=== PATIENT | female | born 1985 | race African-American/Black ===

== ENCOUNTER 2016-09-10 09:14 | Emergency (ER) | payer OTHER ==
[2016-09-10 09:24] VITALS: TEMP 97.8; BMI 36.8
[2016-09-10] MEDS ORDERED: hydrALAZINE HCL 25 MG TABLET (FP) PO ONE (09:55)
[2016-09-10] MEDS ORDERED: amLODIPine BESYLATE 5 MG TABLET (FP) PO ONE (09:55)
[2016-09-10] MEDS ORDERED: LABETALOL HCL 100 MG TABLET (FP) PO ONE (09:56)
--- NOTE | 2016-09-10 10:01 | PDOC ---
History of Present Illness <Blanca Campuzano - Last Filed: 09/10/16 12:56> - General History Source: Patient - History of Present Illness Associated Symptoms: reports: headaches, malaise. denies: chest pain, fever/ chills, nausea/vomiting, shortness of breath <Zoie Reyes - Last Filed: 09/10/16 13:10> - General Chief Complaint: Pain Stated Complaint: HEADACHE, BODY ACHES, DIZZINESS Time Seen by Provider: 09/10/16 09:37 Past History <Blanca Campuzano - Last Filed: 09/10/16 12:56> - Past Medical History HTN: Yes - Psycho/Social/Smoking Cessation Hx Suicidal Ideation: No Smoking History: Current every day smoker Number of Cigarettes Smoked Daily: 4 Information on smoking cessation initiated: No <Zoie Reyes - Last Filed: 09/10/16 13:10> - Past Medical History Allergies/Adverse Reactions: Allergies Allergy/AdvReac Type Severity Reaction Status Date / Time No Known Allergies Allergy Verified 09/10/16 09:24 Home Medications: Ambulatory Orders Amlodipine Besylate [Norvasc -] 5 mg PO DAILY 09/10/16 Labetalol HCl [Normodyne -] 800 mg PO ASDIR 09/10/16 Review of Systems - Review of Systems Constitutional: No: Chills, Fever HEENTM: No: Blurred Vision Respiratory: No: Cough, Shortness of Breath Cardiac (ROS): No: Chest Pain Neurological: Yes: Headache. No: Dizziness <Zoie Reyes - Last Filed: 09/10/16 13:10> *Physical Exam - Vital Signs Last Vital Signs Temp Pulse Resp BP Pulse Ox 97.8 F 84 18 163/106 99 09/10/16 09:16 09/10/16 12:45 09/10/16 12:45 09/10/16 12:45 09/10/16 12:45 <Blanca Campuzano - Last Filed: 09/10/16 12:56> - Vital Signs Last Vital Signs Temp Pulse Resp BP Pulse Ox 97.8 F 92 H 18 200/110 100 09/10/16 09:16 09/10/16 09:16 09/10/16 09:16 09/10/16 09:16 09/10/16 09:16 - Physical Exam General Appearance: Yes: Appropriately Dressed. No: Apparent Distress HEENT: positive: Normal ENT Inspection, Normal Voice. negative: Scleral Icterus (R), Scleral Icterus (L) Neck: positive: Supple Respiratory/Chest: positive: Lungs Clear, Normal Breath Sounds. negative: Respiratory Distress Cardiovascular: positive: Regular Rate, S1, S2 Gastrointestinal/Abdominal: positive: Soft. negative: Tender Extremity: positive: Normal Inspection Integumentary: positive: Dry, Warm Neurologic: positive: Fully Oriented, Alert, Normal Mood/Affect, Motor Strength 5/5. negative: Facial Droop <Lorrie ReyesJoseMyranda - Last Filed: 09/10/16 13:10> Heart Score/ECG Review - ECG Intrepretation Comment:: 09/10/16 11:27 TWI in inferolateral leads, no old to compare <Zoie Reyes - Last Filed: 09/10/16 13:10> ED Treatment Course - LABORATORY CBC & Chemistry Diagram: 09/10/16 10:30 09/10/16 10:30 - ADDITIONAL ORDERS Additional order review: Laboratory Results 09/10/16 09/10/16 11:33 10:30 Sodium 142 Potassium 3.8 Chloride 105 Carbon Dioxide 26 Anion Gap 11 BUN 13 Creatinine 0.9 Creat Clearance w eGFR > 60 Random Glucose 105 Calcium 9.7 Total Bilirubin 0.5 AST 7 L ALT 20 Alkaline Phosphatase 93 Creatine Kinase 78 Troponin I < 0.02 Total Protein 8.8 H Albumin 4.2 Serum , Qual Negative 09/10/16 10:30 RBC 5.96 H MCV 65.6 L MCHC 31.0 L RDW 18.3 H MPV 9.0 Neutrophils % 83.0 H Lymphocytes % 14.0 Monocytes % 3.0 L - Medications Given in the ED: ED Medications Discontinued Medications Generic Name Dose Route Start Last Admin Trade Name Freq PRN Reason Stop Dose Admin Acetaminophen 650 mg 09/10/16 10:27 09/10/16 10:34 Tylenol - PO 09/10/16 10:28 650 mg ONCE ONE Administration Amlodipine Besylate 5 mg 09/10/16 09:55 09/10/16 10:22 Norvasc - PO 09/10/16 09:56 5 mg ONCE ONE Administration Hydralazine HCl 25 mg 09/10/16 09:55 09/10/16 10:22 Apresoline - PO 09/10/16 09:56 25 mg ONCE ONE Administration Ibuprofen 800 mg 09/10/16 09:55 09/10/16 10:22 Motrin - PO 09/10/16 09:56 800 mg ONCE ONE Administration Labetalol HCl 800 mg 09/10/16 09:56 09/10/16 10:22 Normodyne - PO 09/10/16 09:57 800 mg ONCE ONE Administration Labetalol HCl 20 mg 09/10/16 11:35 09/10/16 11:55 Normodyne Injection - IVPUSH 09/10/16 11:36 20 mg ONCE ONE Administration Metoclopramide HCl 10 mg 09/10/16 11:28 09/10/16 11:55 Reglan Injection - IVPB 09/10/16 11:29 10 mg ONCE ONE Administration <Blanca Campuzano - Last Filed: 09/10/16 12:56> - LABORATORY CBC & Chemistry Diagram: 09/10/16 10:30 09/10/16 10:30 <Zoie Reyes - Last Filed: 09/10/16 13:10> Medical Decision Making - Critical Care Time Total Critical Care Time (minutes): 35 Critical Care Statement: The care of this patient involved high complexity decision making to prevent further life threatening deterioration of the patient 's condition and/or to evalute & treat vital organ system(s) failure or risk of failure. - Medical Decision Making 09/10/16 12:[address] [facility] for ICH. <Blanca Campuzano - Last Filed: 09/10/16 12:56> - Medical Decision Making 09/10/16 09:57 31-year-old female, morbid obesity, hypertension, reports non-compliance with medications, presenting with headache and body aches. Patient reports that she' s had headache "for a long time now" and wants to be evaluated today for the first time. Unable to describe pain and states it is diffuse and intermittent with no exacerbating or alleviating factors. Denies dizziness, nausea, vomiting , slurred speech of foal weakness. Also complaining of malaise w/ generalized body aches x several days. No URI symptoms, fever or chills. See exam HTN BP 200/110 in ED Non-compliant w/ home meds C/o chronic CERNA, no change in baseline and non-focal in ED -pain control -BP management>reassess Malaise/body aches ? viral -labs in setting of significantly elevated BP -pain control 09/10/16 10:29 09/10/16 11:28 Given worsening medical condition and abnormal EKG, will transfer to the main ED at this time for further eval including trop and CTH. Charge nurse, MARITA Quezada and attending Justen aware 09/10/16 13:09 09/10/16 13:10 <Zoie Reyes - Last Filed: 09/10/16 13:10> *DC/Admit/Observation/Transfer <Blanca Campuzano - Last Filed: 09/10/16 12:56> <Zoie Reyes - Last Filed: 09/10/16 13:10> Diagnosis at time of Disposition: Basal ganglia hemorrhage - Referrals Referrals: STAFF,NOT ON [Primary Care Provider] -
[2016-09-10] MEDS ORDERED: ONDANSETRON 4 MG TABLET PO ONE (10:03)
[2016-09-10] MEDS ORDERED: IBUPROFEN 400 MG TABLET (FP) PO ONE (10:04)
[2016-09-10] MEDS ORDERED: hydrALAZINE HCL 25 MG TABLET (FP) ONE (10:07)
[2016-09-10] MEDS ORDERED: amLODIPine BESYLATE 5 MG TABLET (FP) ONE (10:07)
[2016-09-10] MEDS ORDERED: LABETALOL HCL 100 MG TABLET (FP) ONE (10:08)
[2016-09-10] MEDS: IBUPROFEN 400 MG TABLET (FP) PO ONE ×2 (10:22→13:09)
[2016-09-10] MEDS ORDERED: ACETAMINOPHEN 325 MG TABLET (FP) PO ONE (10:27)
[2016-09-10] MEDS ORDERED: ACETAMINOPHEN 325 MG TABLET (FP) ONE (10:33)
[2016-09-10 10:42] LABS: MCH 20.4 pg (25.7-33.7); MEAN CELL VOLUME 65.6 fl (80-96); PLATELET COUNT 389 K/MM3 (134-434); RDW 18.3 % (11.6-15.6); WHITE BLOOD COUNT 9.5 K/mm3 (4.0-10.0)
[2016-09-10 11:20] LABS: ALBUMIN 4.2 g/dl (3.4-5.0); ALK PHOS 93 U/L (45-117); ANION GAP 11 (8-16); BILIRUBIN,TOTAL 0.5 mg/dL (0.2-1.0); CALCIUM 9.7 mg/dL (8.5-10.1); CO2 26 mmol/L (21-32); CREATININE 0.9 mg/dL (0.55-1.02); GLUCOSE,RANDOM 105 mg/dL (74-106); SGOT/AST 7 U/L (15-37); SGPT/ALT 20 U/L (12-78); TOT PROT 8.8 g/dl (6.4-8.2)
[2016-09-10] MEDS ORDERED: METOCLOPRAMIDE HCL INJECTION 10 MG/2 ML VIAL IVPB ONE (11:28)
[2016-09-10 11:35] LABS: HYPOCHROMIA 4+; POLYCHROMASIA 1+
[2016-09-10] MEDS ORDERED: LABETALOL HCL 5 MG/1 ML (100MG/20 ML VIAL) IVPUSH ONE (11:35)
[2016-09-10 11:36] LABS: ANISOCYTOSIS 1+; MICROCYTOSIS 1+
[2016-09-10 11:40] LABS: TROPONIN I < 0.02 ng/ml (0.00-0.05)
[2016-09-10] MEDS ORDERED: LABETALOL HCL 5 MG/1 ML (100MG/20 ML VIAL) ONE (11:47)
[2016-09-10] MEDS ORDERED: METOCLOPRAMIDE HCL INJECTION 10 MG/2 ML VIAL ONE (11:47)
--- NOTE | 2016-09-10 12:00 | PDOC ---
ED Treatment Course - LABORATORY CBC & Chemistry Diagram: 09/10/16 10:30 09/10/16 10:30 - ADDITIONAL ORDERS Additional order review: Laboratory Results 09/10/16 09/10/16 11:33 10:30 Sodium 142 Potassium 3.8 Chloride 105 Carbon Dioxide 26 Anion Gap 11 BUN 13 Creatinine 0.9 Creat Clearance w eGFR > 60 Random Glucose 105 Calcium 9.7 Total Bilirubin 0.5 AST 7 L ALT 20 Alkaline Phosphatase 93 Creatine Kinase 78 Troponin I < 0.02 Total Protein 8.8 H Albumin 4.2 Serum , Qual Negative 09/10/16 10:30 RBC 5.96 H MCV 65.6 L MCHC 31.0 L RDW 18.3 H MPV 9.0 Neutrophils % 83.0 H Lymphocytes % 14.0 Monocytes % 3.0 L - Medications Given in the ED: ED Medications Discontinued Medications Generic Name Dose Route Start Last Admin Trade Name Freq PRN Reason Stop Dose Admin Acetaminophen 650 mg 09/10/16 10:27 09/10/16 10:34 Tylenol - PO 09/10/16 10:28 650 mg ONCE ONE Administration Amlodipine Besylate 5 mg 09/10/16 09:55 09/10/16 10:22 Norvasc - PO 09/10/16 09:56 5 mg ONCE ONE Administration Hydralazine HCl 25 mg 09/10/16 09:55 09/10/16 10:22 Apresoline - PO 09/10/16 09:56 25 mg ONCE ONE Administration Ibuprofen 800 mg 09/10/16 09:55 09/10/16 10:22 Motrin - PO 09/10/16 09:56 800 mg ONCE ONE Administration Labetalol HCl 800 mg 09/10/16 09:56 09/10/16 10:22 Normodyne - PO 09/10/16 09:57 800 mg ONCE ONE Administration Labetalol HCl 20 mg 09/10/16 11:35 09/10/16 11:55 Normodyne Injection - IVPUSH 09/10/16 11:36 20 mg ONCE ONE Administration Metoclopramide HCl 10 mg 09/10/16 11:28 09/10/16 11:55 Reglan Injection - IVPB 09/10/16 11:29 10 mg ONCE ONE Administration <Blanca Campuzano - Last Filed: 09/10/16 12:44> - LABORATORY CBC & Chemistry Diagram: 09/10/16 10:30 09/10/16 10:30 - ADDITIONAL ORDERS Additional order review: Laboratory Results 09/10/16 09/10/16 11:33 10:30 Sodium 142 Potassium 3.8 Chloride 105 Carbon Dioxide 26 Anion Gap 11 BUN 13 Creatinine 0.9 Creat Clearance w eGFR > 60 Random Glucose 105 Calcium 9.7 Total Bilirubin 0.5 AST 7 L ALT 20 Alkaline Phosphatase 93 Creatine Kinase 78 Troponin I < 0.02 Total Protein 8.8 H Albumin 4.2 Serum , Qual Negative 09/10/16 10:30 RBC 5.96 H MCV 65.6 L MCHC 31.0 L RDW 18.3 H MPV 9.0 Neutrophils % 83.0 H Lymphocytes % 14.0 Monocytes % 3.0 L - Medications Given in the ED: ED Medications Discontinued Medications Generic Name Dose Route Start Last Admin Trade Name Freq PRN Reason Stop Dose Admin Acetaminophen 650 mg 09/10/16 10:27 09/10/16 10:34 Tylenol - PO 09/10/16 10:28 650 mg ONCE ONE Administration Amlodipine Besylate 5 mg 09/10/16 09:55 09/10/16 10:22 Norvasc - PO 09/10/16 09:56 5 mg ONCE ONE Administration Hydralazine HCl 25 mg 09/10/16 09:55 09/10/16 10:22 Apresoline - PO 09/10/16 09:56 25 mg ONCE ONE Administration Ibuprofen 800 mg 09/10/16 09:55 09/10/16 10:22 Motrin - PO 09/10/16 09:56 800 mg ONCE ONE Administration Labetalol HCl 800 mg 09/10/16 09:56 09/10/16 10:22 Normodyne - PO 09/10/16 09:57 800 mg ONCE ONE Administration <Marlyn Quezada - Last Filed: 09/10/16 13:27> Progress Note - Progress Note Progress Note: I have received report from KRISTOPHER Bay regarding this patient. Pt's initial chief complaint: headache Pt's work up completed prior to sign out: CBC, CMP, Pt treatment given from prior staff: PO Ibuprofen, PO labetalol, PO hydralazine , PO amlodipine, PO reglan, PO tylenol, PO zofran Pt plan to be completed: CT head, EKG, IV access, IV labetalol Dispo: Pending <Marlyn Quezada - Last Filed: 09/10/16 13:27> Medical Decision Making - Medical Decision Making 09/10/16 12:45 I reviewed CTH with KRISTOPHER Quezada. Patient noted to have significant R-sided ICH. Will call [facility] for transfer, as NSx is not available today. Will start nicardipine drip. <Blanca Campuzano - Last Filed: 09/10/16 12:44> - Medical Decision Making A/P: 31 y/o afebrile female, who admits she's been Hypertensive for the past 7 months since being preeclamptic during . She admits she's had a worsening headache for the past 1 week and 2 days ago she stopped taking her BP medications because she doesn't like how they make her feel. She has been taking 1200mg of Motrin "whenever she has the head pain", but states it's not working. She denies f/c, neck pain, changes in vision/hearing, CP, SOB, abd pain, back pain, hematuria, dysuria, slurred speech, facial drooping. Physical exam reveals drowsy patient but normal Neurologic exam. Pt was transferred to the main ER from [facility] for higher level of care. Head CT ordered IV access established IV labetalol ordered. CT scan head IMPRESSION: Acute hypertensive hemorrhage in the right basal ganglia with intraventricular extension of hemorrhage. Informed the patient of the diagnosis and plan for transfer. Spoke with Dr. Pleitez, Neurosurgeon at [facility], who accepted transfer. She instructed me to not lower BP less than 160/90. Started patient on Nicardipine drip - informed the nurse of the BP parameters. Patient's BP down to 163/100. <Marlyn Quezada - Last Filed: 09/10/16 13:27> *DC/Admit/Observation/Transfer <Blanca Campuzano - Last Filed: 09/10/16 12:44> - Transfer to Acute Care Facility Receiving Facility: [facility]. <Marlyn Quezada - Last Filed: 09/10/16 13:27> Diagnosis at time of Disposition: Basal ganglia hemorrhage - Discharge Dispostion Disposition: TRANSFER ACUTE CARE/OTHER HOSP Condition at time of disposition: Stable - Referrals Referrals: STAFF,NOT ON [Primary Care Provider] -
[2016-09-10] MEDS ORDERED: niCARdipine HCL 25 MG/10 ML AMPUL IVPB ONE (12:40)
[2016-09-10] MEDS ORDERED: NICARDIPINE 25 MG in DEXTROSE 5%-WATER - 240 ML IVPB SCH (12:45)
[2016-09-10] MEDS ORDERED: levETIRAcetam 500 MG/5 ML INJECTION VIAL IVPB ONE ×2 (13:30→13:36)
[2016-09-10 13:38] VITALS: BP 161/108; PULSE 78
--- NOTE | 2016-09-10 17:18 | EKG ---
Test Reason : Blood Pressure : / mmHG Vent. Rate : 076 BPM Atrial Rate : 076 BPM P-R Int : 146 ms QRS Dur : 094 ms QT Int : 414 ms P-R-T Axes : 045 010 204 degrees QTc Int : 465 ms NORMAL SINUS RHYTHM POSSIBLE ANTERIOR INFARCT , AGE UNDETERMINED ABNORMAL ECG NO PREVIOUS ECGS AVAILABLE Confirmed by KELVIN MONACO MD ([id number]) on 09/10/2016 5:17:36 PM Referred By: Confirmed By:KELVIN MONACO MD
== END 2016-09-10 13:37 | disposition short-term general hospital (02) ==
LOC: JERFT 09:14 → JER 09:14
PROC: 3E033GC Introduction of Other Therapeutic Substance into Peripheral Vein, Percutaneous Approach (ICD-10-PCS; principal; 2016-09-10)
DX: I61.8 Other nontraumatic intracerebral hemorrhage (principal); R51 Headache; I10 Essential (primary) hypertension; F17.210 Nicotine dependence, cigarettes, uncomplicated; Z91.14 Patient's other noncompliance with medication regimen
CPT/HCPCS: 36415; 70450-TC; 80053; 82550; 84484; 84703; 85025; 93005; 93010; 96365; 96375; 99284-25